=== PATIENT | female | born 1985 | race Caucasian/White ===

== ENCOUNTER 2018-08-27 18:24 | Emergency (ER) | payer OTHER ==
[~2018-08-27] VITALS: Ht 167.6 cm; Wt 72.3 kg
[2018-08-27] MEDS ORDERED: DEPOP150I IM (18:51)
[2018-08-27 19:08] LABS: APPEARANCE,URINE CLEAR (CLEAR); BILIRUBIN,URINE NEGATIVE (NEGATIVE); GLUCOSE, URINE (UA) NEGATIVE (NEGATIVE); KETONES,URINE NEGATIVE (NEGATIVE); LEUKOCYTE ESTERASE ,URINE NEGATIVE (NEGATIVE); NITRATE,URINE NEGATIVE (NEGATIVE); OCCULT BLOOD,URINE TRACE (NEGATIVE); PH,URINE 6.5 (5.0-8.0); PROTEIN,URINE NEGATIVE (NEGATIVE); UROBILINOGEN,URINE 0.2 mg/dL (<=1.0)
[2018-08-27 19:12] LABS: BASOPHILS % (AUTO) 0.7 % (0.0-2.0); EOSINOPHILS % (AUTO) 2.8 % (1.0-6.0); HEMOGLOBIN 13.4 g/dL (12.0-16.0); LYMPHOCYTES # (AUTO) 2.6 K/uL (1.0-4.8); LYMPHOCYTES % (AUTO) 29.8 % (22.0-44.0); MEAN CORPUSCULAR HEMOGLOBIN 31.2 pg (26.0-34.0); MEAN CORPUSCULAR HGB CONC 34.2 G/dL (31.0-37.0); MEAN CORPUSCULAR VOLUME 91 fL (80-100); MONOCYTES # (AUTO) 0.5 K/uL (0.1-1.0); MONOCYTES % (AUTO) 6.1 % (2.0-9.0); NEUTROPHILS # (AUTO) 5.4 K/uL (1.8-7.7); NEUTROPHILS % (AUTO) 60.6 % (40.0-70.0); PLATELET COUNT (AUTO) 227 K/uL (150-450); RED BLOOD CELL COUNT(AUTO) 4.28 MIL/uL (4.00-5.20)
[2018-08-27 19:26] LABS: BACTERIA,URINE None Seen /HPF (None Seen); RBC,URINE 0-2 /HPF (0-2); SQUAMOUS EPITHELIAL CELL,UR Few /LPF (None Seen); WBC,URINE None Seen /HPF (0-5)
[2018-08-27 19:41] LABS: ANION GAP 9 mmol/L (8-16); CARBON DIOXIDE 28 mmol/L (22-29); CHLORIDE 102 mmol/L (98-107); CREATININE 0.57 mg/dL (0.60-1.30); GLOMERULAR FILTR. RATE CALC > 60 mL/min (>60); GLUCOSE,RANDOM 86 mg/dL (70-110); POTASSIUM 3.7 mmol/L (3.5-5.1); SODIUM SERUM 139 mmol/L (136-145); UREA NITROGEN, BLOOD 7 mg/dL (7-18)
[2018-08-27 19:47] LABS: ALANINE AMINOTRANSFERASE 87 U/L (12-78); ALBUMIN 3.8 g/dL (3.4-5.0); ALKALINE PHOSPHATASE 79 U/L (46-116); ASPARTATE AMINOTRANSFERASE 42 U/L (15-37); BILIRUBIN,TOTAL 0.4 mg/dL (0.1-1.0); LIPASE 132 U/L (73-393)
[2018-08-27 20:24] LABS: HCG,QUANTITATIVE 3791 mIU/mL (0-6)
[2018-08-27 23:27] VITALS: BP 120/68
== END 2018-08-27 23:30 | disposition home or self-care (01) ==
LOC: EMS 18:25
DX: O20.9 Hemorrhage in early pregnancy, unspecified (principal); O26.891 Other specified pregnancy related conditions, first trimester; Z3A.01 Less than 8 weeks gestation of pregnancy
CPT/HCPCS: 76801; 76817; 86901

== ENCOUNTER 2023-01-13 11:43 | Emergency (ER) | payer OTHER ==
[~2023-01-13] VITALS: Ht 167.6 cm; Wt 98.0 kg
[~2023-01-13 11:43] MED LIST: MEDR150V13 IM
[2023-01-13 12:13] VITALS: BP 136/82; PULSE 81; RESP 16; TEMP 98.4
[2023-01-13] MEDS ORDERED: HYDROCODONE/ACETAMINOPHEN 5-325 MG TABLET PO ONE (12:15)
[2023-01-13] MEDS ORDERED: INSULIN REGULAR, HUMAN 100 UNITS/ML IVP ONE (12:15)
[2023-01-13] MEDS ORDERED: SODIUM CHLORIDE 0.9% 1,000 ML IV ONE (12:15)
[2023-01-13 12:35] LABS: BASOPHILS % (AUTO) 0.6 % (0.0-2.0); EOSINOPHILS % (AUTO) 3.9 % (1.0-6.0); HEMATOCRIT 40.3 % (36-46); HEMOGLOBIN 12.9 g/dL (12.0-16.0); LYMPHOCYTES % (AUTO) 19.5 % (22.0-44.0); MEAN CORPUSCULAR HEMOGLOBIN 27.9 pg (26.0-34.0); MEAN CORPUSCULAR VOLUME 87 fL (80-100); MONOCYTES # (AUTO) 0.3 K/uL (0.1-1.0); MONOCYTES % (AUTO) 6.3 % (2.0-9.0); NEUTROPHILS # (AUTO) 3.5 K/uL (1.8-7.7); NEUTROPHILS % (AUTO) 69.7 % (40.0-70.0); RED BLOOD CELL COUNT(AUTO) 4.62 MIL/uL (4.00-5.20); RED CELL DISTRIBUTION WIDTH 20.5 % (11.5-14.5)
[2023-01-13 12:53] LABS: ANION GAP 8 mmol/L (8-16); CALCIUM, TOTAL 8.4 mg/dL (8.8-10.5); CARBON DIOXIDE 24 mmol/L (22-29); CHLORIDE 101 mmol/L (98-107); CREATININE 0.67 mg/dL (0.60-1.30); GLOMERULAR FILTR. RATE CALC > 60 mL/min (>60); GLUCOSE,RANDOM 354 mg/dL (70-110); SODIUM SERUM 133 mmol/L (136-145); UREA NITROGEN, BLOOD 8 mg/dL (7-18)
[2023-01-13 12:56] LABS: PLATELET COUNT (AUTO) 68 K/uL (150-450)
== END 2023-01-13 15:09 | disposition home or self-care (01) ==
LOC: EMS 11:48
DX: S97.82XA Crushing injury of left foot, initial encounter (principal); E11.65 Type 2 diabetes mellitus with hyperglycemia; W23.0XXA Caught, crushed, jammed, or pinched between moving objects, initial encounter; Y93.89 Activity, other specified; Y92.89 Other specified places as the place of occurrence of the external cause; Y99.8 Other external cause status
CPT/HCPCS: 80048; 82962; 85025; 99284

== ENCOUNTER 2024-05-19 07:02 | Day surgery (SDC) | payer OTHER ==
[~2024-05-19] VITALS: Ht 167.6 cm; Wt 90.0 kg
[~2024-05-19 07:02] MED LIST changes: +ALBU2SYR27 PO; +DOCU-385 PO; +FAMO10TA39 PO; +FERR325T27 PO; +INSU100I24 SQ; -MEDR150V13 IM; +METF-1211 PO; +METO-296 PO; +NITR-75 PO
[2024-05-19] MEDS ORDERED: INSU100I3 INJ (07:54)
[2024-05-19] MEDS ORDERED: PANT40TA54 PO (07:58)
[2024-05-19 08:06] LABS: GLUCOMETER DEV NAME(LOC) SDS.; GLUCOSE,POINT OF CARE 140 MG/DL (70-110)
[2024-05-19] MEDS: SODIUM CHLORIDE 0.9% 1,000 ML IV ONE (08:25)
[2024-05-19] MEDS ORDERED: LIDOCAINE/PF 2% 5 ML VIAL IM ONE (12:00)
[2024-05-19] MEDS ORDERED: GLYCOPYRROLATE 0.2 MG/ML VIAL IM ONE (12:00)
[2024-05-19] MEDS ORDERED: PROPOFOL 1% 20 ML VIAL IVP ONE (12:00)
== END 2024-05-19 10:14 | disposition home or self-care (01) ==
LOC: SURGERY 07:02
PROVIDERS: ATTEND Internal Medicine
DX: I85.00 Esophageal varices without bleeding (principal); K76.6 Portal hypertension; K31.89 Other diseases of stomach and duodenum; E11.9 Type 2 diabetes mellitus without complications; Z79.899 Other long term (current) drug therapy
CPT/HCPCS: 43244; 84703; 82962; J2704; J3490 ×2

== ENCOUNTER → 2024-08-04 | Day surgery (SDC) | payer OTHER ==
[~2024-08-04] VITALS: Ht 167.6 cm; Wt 90.0 kg
[~2024-08-04] MED LIST changes: +ATROPINE SULFATE 0.1 MG/ML 10 ML SYRINGE IVP ONE; +CARV3.1231 PO; +CHOL25TA4 PO; -DOCU-385 PO; +DiphenhydrAMINE HCL 50 MG/ML VIAL ONE; +EPINEPHrine 1:10,000 [1 MG/10 ML] SYRINGE ONE; -FAMO10TA39 PO; +FERR325T23 PO; -FERR325T27 PO; +FLUMAZENIL 0.1 MG/ML 5 ML VIAL IVP ONE; +INSU100I3 INJ; +LIDOCAINE/PF 2% 5 ML VIAL ONE; -METO-296 PO; +NALOXONE HCL 0.4 MG/ML VIAL ONE; -NITR-75 PO; +PANT40TA54 PO; +PROPOFOL 1% 20 ML VIAL IVP ONE; +SEMA1PEN3 SQ; +SODIUM CHLORIDE 0.9% 1,000 ML ONE; +SODIUM TETRADECYL SULFATE 3% 60 MG/2 ML VIAL IVP ONE
[2024-08-04] MEDS: SODIUM CHLORIDE 0.9% 1,000 ML IV ONE (06:19)
[2024-08-04 07:21] LABS: GLUCOMETER DEV NAME(LOC) SDS.; GLUCOSE,POINT OF CARE 113 MG/DL (70-110)
== END | disposition still patient (30) ==
LOC: SURGERY 05:41
PROVIDERS: ATTEND Internal Medicine
DX: I85.00 Esophageal varices without bleeding (principal); K74.60 Unspecified cirrhosis of liver; K76.6 Portal hypertension; K31.89 Other diseases of stomach and duodenum; E11.9 Type 2 diabetes mellitus without complications; J45.909 Unspecified asthma, uncomplicated; Z79.899 Other long term (current) drug therapy
CPT/HCPCS: 43244; 84703; 82962; J2704; J3490 ×2; J7030; J0171; J0461; J1200; J2310